=== PATIENT | female | born 1990 | race Caucasian/White ===

== ENCOUNTER 2017-09-26 02:35 | Inpatient (IN) | payer MEDICAID, SELFPAY ==
[2017-09-26 03:08] VITALS: BMI 32.3
[2017-09-26] MEDS: Lactated Ringers 1,000 ML 50 ML IV (03:15)
--- NOTE | 2017-09-26 03:34 | PCM.PN.BLA ---
Progress Note 40+ wk ? SROM. ROM + test sent Uncomfortable. 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 PIH labs sent.
--- NOTE | 2017-09-26 03:37 | PN_ITS ---
Progress Note 40+ wk ? SROM. ROM + test sent Uncomfortable. 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 PIH labs sent.
[2017-09-26 03:41] LABS: Hematocrit 35.8 % (37-47); Hemoglobin 11.7 g/dl (12.0-15.0); Mean Corp Hgb Conc 32.7 g/gl (32-36); Mean Corpuscular Hgb 26.3 pg (27.0-32.0); Mean Corpuscular Volume 80.4 fL (81-99); Mean Platelet Vol. 10.8 fl (6.2-12.0); Platelet Count 392 K/mm3 (150-450); RBC Distribution Width SD 39.8 fl (35.1-43.9); Red Blood Count 4.45 M/mm3 (4.2-5.4); Scan Indicated on CBC? Y/N NO; White Blood Count 20.6 K/mm3 (4.4-11.0)
[2017-09-26 03:42] LABS: ROM Internal Control Test YES-OK TO RESULT pt. (Internal QC); ROM Patient Test POSITIVE (Negative)
[2017-09-26 03:47] LABS: International Normalized Ratio 0.9; Prothrombin Time (Protime)PT. 12.1 SECONDS (11.7-14.9)
[2017-09-26 03:48] LABS: Partial Thromboplast Time 28.2 Seconds (24.1-36.2)
[2017-09-26 03:54] LABS: AST(SGOT) 28 U/L (15-37); Alanine Aminotransfer ALT/SGPT 43 U/L (12-78); Creatinine, Serum 0.51 mg/dL (0.55-1.02); EST Glomerular Filtration Rate 153 mL/min (>60); Est Glom Filt Rate - Afr Amer 185 mL/min (>60); Estimated Creatinine Clearance 150.42 ml/min; Uric Acid 4.2 mg/dL (2.6-6.0)
--- NOTE | 2017-09-26 06:03 | PCM.PN.BLA ---
Progress Note 40+ wks. Sitting up in bed vomiting into emesis bag. Multiple family members attending. Was using nitrous for pain EFM: category I tracing. 130s with accels UCs present, poor tracing at times due to position Cx 9 cm ? forebag. Unable to rupture at present d/t emesis, discomfort. A/P: 40+ wk continue labor. Anticipate
[2017-09-26] MEDS: Oxytocin 30 units/NS 500 ml 30 UNITS/500 ML IV.SOLN 334 UNITS IV (07:03)
--- NOTE | 2017-09-26 07:22 | PCM.OB.VAG ---
Vaginal Delivery Maternal Presentation: Active Labor, Spontaneous Rupture of Membranes Amniotic Membrane Rupture Type: Spontaneous at home Amniotic Fluid Description: Clear Final EVERETTE: 09/24/17 Gestational age: 40 Weeks and 2 Days Date of Procedure: 09/26/17 Pre-Operative Diagnosis: 40 2/7 wk labor Post-Operative Diagnosis: same Surgery/ Procedure Performed: Spontaneous Vaginal Delivery Type of Anesthesia: None Description of Procedure: Baby HR in 90-100 during last stage of pushing. O2 applied of a waldron viable female over intact perineum to lacerations. Head delivered SHAUN. OP , no nuchal cord, Shoulders delivered easily. Baby to maternal abdomen OP and nares bulb suctioned. Short cord Cord clamped x two and cut. Routine venous and arterial blood gases and cord blood for typing collected. PP exam; Perineal first degree lacerations and 2nd deg posterior vaginal/perineal laceration noted. Placenta delivered easily, spont expulsion 3V cord normal appearing and intact with attached clot and trailing membranes EBL 350 Pt and tolerated delivery well. To recovery, stable condition. Ray Kathia counts correct Presentation: Vertex, ALEXANDREA Placental Delivery Description: Spontaneous, Expressed Placenta Disposition: [facility] Cord Vessel Description: 3 Vessels Cord Gases drawn per routine: ABG, VBG Cord Entanglement: None Estimated Blood Loss: 350 Infant A gender: Female (1 minute): 8 (5 minute): 9 Episiotomy Description: None Laceration: Midline, Vaginal Extension/lac, 2nd degree - bilateral anterior perineal lacerations also noted, but 1st deg and hemostatic (not repaired) Medications given after delivery: IV Pitocin Complications: None
--- NOTE | 2017-09-26 07:27 | OP.PCM_ITS ---
Vaginal Delivery Maternal Presentation: Active Labor, Spontaneous Rupture of Membranes Amniotic Membrane Rupture Type: Spontaneous at home Amniotic Fluid Description: Clear Final EVERETTE: 09/24/17 Gestational age: 40 Weeks and 2 Days Date of Procedure: 09/26/17 Pre-Operative Diagnosis: 40 2/7 wk labor Post-Operative Diagnosis: same Surgery/ Procedure Performed: Spontaneous Vaginal Delivery Type of Anesthesia: None Description of Procedure: Baby HR in 90-100 during last stage of pushing. O2 applied of a waldron viable female over intact perineum to lacerations. Head delivered SHAUN. OP , no nuchal cord, Shoulders delivered easily. Baby to maternal abdomen OP and nares bulb suctioned. Short cord Cord clamped x two and cut. Routine venous and arterial blood gases and cord blood for typing collected. PP exam; Perineal first degree lacerations and 2nd deg posterior vaginal/ perineal laceration noted. Placenta delivered easily, spont expulsion 3V cord normal appearing and intact with attached clot and trailing membranes EBL 350 Pt and infant tolerated delivery well. To recovery, stable condition. Ray Kathia counts correct Presentation: Vertex, ALEXANDREA Placental Delivery Description: Spontaneous, Expressed Placenta Disposition: [facility] Cord Vessel Description: 3 Vessels Cord Gases drawn per routine: ABG, VBG Cord Entanglement: None Estimated Blood Loss: 350 A gender: Female (1 minute): 8 (5 minute): 9 Episiotomy Description: None Laceration: Midline, Vaginal Extension/lac, 2nd degree - bilateral anterior perineal lacerations also noted, but 1st deg and hemostatic (not repaired) Medications given after delivery: IV Pitocin Complications: None
--- NOTE | 2017-09-26 07:27 | PCM.DCVAG ---
Discharge Diet: No Restrictions Discharge Activity: May Shower, May Take a Tub Bath Return to work on:: 11/08/17 May resume sexual activity in: 4-6 weeks Additional Instructions: If you experience any of the following, contact your healthcare provider. Bleeding that soaks a pad every hour for 2 hours Fever 100.4 or higher Unrelieved abdominal pain Problems urinating (including inability to urinate or burning while urinating). Visual changes Severe headache Flu-like symptoms Pain or redness in one of both of your breasts Pain, warmth, tenderness or swelling in your legs, especially the calf area Frequent nausea and vomiting Symptoms of depression or anxiety If you experience any of the following, call 911 or go to the nearest Emergency Room. Chest pain Problems breathing Seizure activity Partial or complete paralysis of a body part, slurred speech, weakness or drooping of the face, or a sudden inability to walk or hold your balance Allergies/Adverse Reactions: Allergies No Known Allergies Allergy (Verified 09/26/17 03:08) Medications to take at Discharge Vits [Prenatabs FA] 1 tablet PO DAILY 06/10/17 Please Follow Up With: Alondra Nelson MD - [phone] When: Call to make an appointment with your doctor in 6 weeks. Primary Care Physician: Care Physician,No Primary [Primary Care Provider] - Proposed Discharge Date: 09/28/17
--- NOTE | 2017-09-26 07:28 | DCINST_ITS ---
Discharge Diet: No Restrictions Discharge Activity: May Shower, May Take a Tub Bath Return to work on:: 11/08/17 May resume sexual activity in: 4-6 weeks Additional Instructions: If you experience any of the following, contact your healthcare provider. * Bleeding that soaks a pad every hour for 2 hours * Fever 100.4 or higher * Unrelieved abdominal pain * Problems urinating (including inability to urinate or burning while urinating) . * Visual changes * Severe headache * Flu-like symptoms * Pain or redness in one of both of your breasts * Pain, warmth, tenderness or swelling in your legs, especially the calf area * Frequent nausea and vomiting * Symptoms of depression or anxiety If you experience any of the following, call 911 or go to the nearest Emergency Room. * Chest pain * Problems breathing * Seizure activity * Partial or complete paralysis of a body part, slurred speech, weakness or drooping of the face, or a sudden inability to walk or hold your balance Allergies/Adverse Reactions: Allergies No Known Allergies Allergy (Verified 09/26/17 03:08) Medications to take at Discharge Vits [Prenatabs FA] 1 tablet PO DAILY 06/10/17 Please Follow Up With: Alondra Nelson MD - [phone] When: Call to make an appointment with your doctor in 6 weeks. Primary Care Physician: Care Physician,No Primary [Primary Care Provider] - Proposed Discharge Date: 09/28/17
[2017-09-26] MEDS: Oxytocin 30 units/NS 500 ml 30 UNITS/500 ML IV.SOLN 167 UNITS IV (07:38)
[2017-09-26] MEDS: Acetaminophen 500 MG Tablet 1000 MG PO ×2 (08:45→18:37)
[2017-09-26] MEDS: Ibuprofen 600 MG Tablet PO (10:12)
[2017-09-26 12:00] VITALS: BP 133/66; PULSE 113; RESP 18; TEMP 36.8; O2SAT 98
[2017-09-26 16:15] VITALS: BP 122/65; PULSE 96; RESP 18; TEMP 37.1; O2SAT 97
[2017-09-26 21:05] VITALS: BP 149/77; PULSE 85; RESP 18; TEMP 36.9; O2SAT 98
[2017-09-27 00:10] VITALS: BP 136/76; PULSE 90; RESP 20; TEMP 36.5; O2SAT 97
[2017-09-27] MEDS: Acetaminophen 500 MG Tablet 1000 MG PO ×2 (02:56→19:07)
[2017-09-27 03:05] VITALS: BP 125/74; PULSE 77; RESP 18; TEMP 37.1; O2SAT 97
[2017-09-27 06:39] LABS: Hematocrit 29.6 % (37-47); Hemoglobin 9.7 g/dl (12.0-15.0); Mean Corp Hgb Conc 32.8 g/gl (32-36); Mean Corpuscular Hgb 26.6 pg (27.0-32.0); Mean Corpuscular Volume 81.3 fL (81-99); Mean Platelet Vol. 10.7 fl (6.2-12.0); Platelet Count 375 K/mm3 (150-450); RBC Distribution Width CV 14.1 % (11.6-14.6); RBC Distribution Width SD 40.6 fl (35.1-43.9); Red Blood Count 3.64 M/mm3 (4.2-5.4)
[2017-09-27 07:26] LABS: Scan Indicated on CBC? Y/N NO
[2017-09-27 08:42] VITALS: BP 135/68; PULSE 61; RESP 16; TEMP 36.8; O2SAT 98
[2017-09-27] MEDS: Ibuprofen 600 MG Tablet PO ×2 (10:23→23:51)
--- NOTE | 2017-09-27 12:54 | PCM.PN.OB ---
Subjective: PPD#1 Doing well. States bleeding is more minimal. Breast feeding, but baby hard to wake up now. Objective: Sitting up in bed, tending to baby - Physical Exam General: Alert, Oriented x3, Cooperative, No apparent distress HEENT: Atraumatic Neck: Supple Neurological: Cranial nerves II-XII grossly intact Psych/Mental Status: Normal Affect Vital Signs Temp Pulse Resp BP Pulse Ox 98.3 F 61 16 135/68 H 98 09/27/17 08:42 09/27/17 08:42 09/27/17 08:42 09/27/17 08:42 09/27/17 08:42 Oxygen Delivery Method Room Air Weight: 88.1 kg Body Mass Index (BMI) 32.3 Laboratory Tests Past 24 Hrs 09/27/17 06:15 WBC 17.0 H RBC 3.64 L Hgb 9.7 L Hct 29.6 L MCV 81.3 MCH 26.6 L MCHC 32.8 RDW 14.1 RDW Differential 40.6 Plt Count 375 MPV 10.7 Assessment/Plan PPD#1 Stable pp. continue care.
[2017-09-27 14:00] VITALS: BP 139/80; PULSE 81; RESP 16; TEMP 36.5; O2SAT 98
[2017-09-27 19:35] VITALS: BP 143/95; PULSE 96; RESP 16; TEMP 37.3
[2017-09-28 01:10] VITALS: BP 148/80; PULSE 72; RESP 16; TEMP 37.4; O2SAT 98
[2017-09-28 08:10] VITALS: BP 138/81; PULSE 90; RESP 16; TEMP 37.9; O2SAT 97
[2017-09-28] MEDS: Ibuprofen 600 MG Tablet PO (08:26)
--- NOTE | 2017-09-28 08:41 | PN.OBGYN_ITS ---
Subjective: PPD#2 Doing ok. Breasts are sore and nipples sore. Good latch already noted. Advised normal vs s/sx of mastitis. Mild / borderline pp HTN. Will continue to observe and advised her no meds for now. NO PIH sx. Sore lower abdomen but has cough and this may be complicating any muscle pain she has. - Physical Exam General: Alert, Oriented x3, Cooperative, No apparent distress HEENT: Atraumatic - coughing and has cold Neck: Supple Abdomen: Soft - minimally tender to palpation. no guarding, no rebound Neurological: Cranial nerves II-XII grossly intact Psych/Mental Status: Normal Affect Vital Signs Temp Pulse Resp BP Pulse Ox 99.3 F H 72 16 148/80 H 98 09/28/17 01:10 09/28/17 01:10 09/28/17 01:10 09/28/17 01:10 09/28/17 01:10 Oxygen Delivery Method Room Air Weight: 88.1 kg Body Mass Index (BMI) 32.3 Assessment/Plan PPD#2 Stable pp. Milk likely coming in. Low gr temp this am Mild elevation of BPs. -- home and reviewed all with pt. Dischg instructions given. Breast pain / nipple pain -- Lansinoh cream -- quality assurance consultant [email or web address] Nath in to evaluate. Good latch already noted. Reviewed s/sx of mastitis and encouraged to call ofc prn. Mild HTN -- already delivered and doubt meds needed -- ofc appt for BP check in 2 wk Temps in labor -- watch and report temp at home -- urine culture to be sent prior to dischg. To ofc in 2 and 6 wk for pp checks.
[2017-09-28 09:47] LABS: Hematocrit 32.7 % (37-47); Hemoglobin 10.5 g/dl (12.0-15.0); Mean Corp Hgb Conc 32.1 g/gl (32-36); Mean Corpuscular Hgb 26.2 pg (27.0-32.0); Mean Corpuscular Volume 81.5 fL (81-99); Mean Platelet Vol. 10.1 fl (6.2-12.0); Platelet Count 461 K/mm3 (150-450); RBC Distribution Width SD 41.7 fl (35.1-43.9); Red Blood Count 4.01 M/mm3 (4.2-5.4); White Blood Count 14.4 K/mm3 (4.4-11.0)
[2017-09-28 09:48] LABS: Scan Indicated on CBC? Y/N NO
== END 2017-09-28 11:30 | disposition home or self-care (01) | DRG 372 ==
PROVIDERS: Admitting Provider Obstetrics & Gynecology; Visit Provider Obstetrics & Gynecology
DX: O70.1 Second degree perineal laceration during delivery (principal); O16.5 Unspecified maternal hypertension, complicating the puerperium; Z37.0 Single live birth; Z3A.40 40 weeks gestation of pregnancy
CPT/HCPCS: 59025; 59050; 82565; 84112; 84450; 84460; 84550; 85027; 85610; 85730; 86850; 86900; 87086; 99218; J7120; A4216; G0378

== ENCOUNTER → 2020-05-09 13:53 | Outpatient (CLI) | payer BC, SELFPAY | PROVIDERS: Visit Provider Family Medicine | DX: Z11.59 Encounter for screening for other viral diseases (principal) | CPT/HCPCS: 87635; U0003 ==

== ENCOUNTER → 2020-05-21 | Outpatient (CLI) | payer BC, SELFPAY | END | disposition home or self-care (01) | LOC: LABSPEC 05-22 12:23 | PROVIDERS: Visit Provider Family Medicine | DX: Z11.59 Encounter for screening for other viral diseases (principal) | CPT/HCPCS: 87635; U0003 ==

== ENCOUNTER → 2020-08-31 20:29 | Outpatient (CLI) | payer BC, SELFPAY | LOC: OLS.WHL 20:30 → LABSPEC 09-01 15:50 | PROVIDERS: Visit Provider Family Medicine | DX: Z00.00 Encounter for general adult medical examination without abnormal findings (principal) | CPT/HCPCS: 87635; U0003 ==

== ENCOUNTER → 2020-10-15 15:18 | Outpatient (CLI) | payer BC, SELFPAY ==
[2020-10-18 03:07] LABS: Chlamydia By Nucleic Acid AMP Negative (Negative)
[2020-10-18 11:08] LABS: Gonococcus By Nucleic Acid AMP Negative (Negative)
[2020-10-18 14:13] LABS: HPV Reflexed? NOT INDICATED
== END ==
PROVIDERS: Visit Provider Student in an Organized Health Care Education/Training Program
DX: Z12.4 Encounter for screening for malignant neoplasm of cervix (principal); Z11.3 Encounter for screening for infections with a predominantly sexual mode of transmission; Z32.01 Encounter for pregnancy test, result positive
CPT/HCPCS: 87491; 87591; 88175; G0145

== ENCOUNTER → 2020-10-30 08:25 | Outpatient (CLI) | payer BC, SELFPAY ==
[2020-10-30 10:51] LABS: Hematocrit 42.1 % (37-47); Hemoglobin 13.2 g/dL (12.0-15.0); Mean Corp Hgb Conc 31.4 g/dL (32-36); Mean Corpuscular Hgb 26.6 pg (27.0-32.0); Mean Corpuscular Volume 84.7 fL (81-99); Mean Platelet Vol. 9.8 fl (6.2-12.0); Platelet Count 362 K/mm3 (150-450); RBC Distribution Width CV 13.3 % (11.6-14.6); RBC Distribution Width SD 41.6 fl (35.1-43.9); Red Blood Count 4.97 M/mm3 (4.2-5.4); White Blood Count 13.4 K/mm3 (4.4-11.0)
[2020-10-30 10:55] LABS: Glucose Challenge Gest 1H 50g 138 mg/dL (70-140)
== END ==
PROVIDERS: Visit Provider Student in an Organized Health Care Education/Training Program
DX: Z34.81 Encounter for supervision of other normal pregnancy, first trimester (principal); Z67.40 Type O blood, Rh positive
CPT/HCPCS: 36415; 82950; 85027

== ENCOUNTER → 2020-11-08 09:31 | Outpatient (CLI) | payer BC, SELFPAY ==
[2020-11-08 14:02] LABS: hCG Titer Quant., Serum 28464 mIU/mL (1-3)
== END ==
PROVIDERS: Visit Provider Student in an Organized Health Care Education/Training Program
DX: O02.81 Inappropriate change in quantitative human chorionic gonadotropin (hCG) in early pregnancy (principal); Z3A.00 Weeks of gestation of pregnancy not specified
CPT/HCPCS: 36415; 84702

== ENCOUNTER 2022-07-23 01:47 | Emergency (ER) | payer SELFPAY ==
[2022-07-23 01:47] VITALS: BP 178/96; PULSE 120; RESP 18; TEMP 36.5; O2SAT 99; BMI 36.3
--- NOTE | 2022-07-23 02:09 | EKG12_ITS ---
Test Reason : HTN Blood Pressure : / mmHG Vent. Rate : 080 BPM Atrial Rate : 080 BPM P-R Int : 142 ms QRS Dur : 086 ms QT Int : 366 ms P-R-T Axes : 040 -08 007 degrees QTc Int : 422 ms Normal sinus rhythm Minimal voltage criteria for LVH, may be normal variant ( R in aVL ) Cannot rule out Anterior infarct , age undetermined Abnormal ECG Confirmed by MIRYAM PEREZ, AMILCAR ([id number]), story editor LYNN LORENZANA ([id number]) on 07/27/2022 11:48:36 AM Referred By: Confirmed By:AMILCAR WITT MD
--- NOTE | 2022-07-23 02:10 | EDS_ITS ---
HPI History of Present Illness Chief Complaint: Hypertension Detail of Chief Complaint: High blood pressure and not feeling well Informant: patient Narrative Narrative: Patient presents the emergency department with complaint of elevated blood pressure. Patient states that she was sitting at work when she started feeling very shaky and so she felt to check her blood sugar which she is never really had a problem with and the sugar was 107. Patient also checked her blood pressure noted that it was elevated at 174/110 and her pulse was 128. Patient states she has had intermittent episodes of elevated heart rates as high as 120s to 140s. Patient denies recent illness. Patient states she found out a week ago that she was and think she is about 7 weeks along. Patient states that her last ended in a miscarriage. She does not have any medical history otherwise. No significant history of anxiety or panic attacks. Denies increased stress. PFSH PFSH Home Medications NK 07/23/22 [History Last Taken Unknown] Allergy/AdvReac Type Severity Reaction Status Date / Time No Known Allergies Allergy Verified 09/26/17 03:08 Social History Smoking Status: Never smoker ROS ROS ED ROS Narrative Feeling shaky and nauseated, hypertension Review of Systems ROS Unobtainable: other Constitutional Constitutional ED: Reports lethargy; Denies chills, fever(s), sweats or weight loss Eyes Eyes: Denies blurry vision, change in vision or diplopia ENT ENT ED: Denies rhinorrhea or sore throat Cardiovascular Cardiovascular: Denies chest pain or orthopnea Respiratory/Chest Respiratory/Chest: Denies cough, dyspnea, dyspnea on exertion, orthopnea or sputum Gastrointestinal Gastrointestinal: Reports nausea; Denies abdominal pain, diarrhea or vomiting Genitourinary Genitourinary ED: Denies dysuria, hematuria or urinary frequency Musculoskeletal Musculoskeletal: Denies arthralgias, back pain, myalgias or neck pain Integumentary Denies abscess, Abrasions or rash Neurologic Neurologic: Denies headache(s) or weakness Psychiatric Psychiatric: Denies anxiety, depression or suicidal thoughts Endocrine Endocrinology: Denies polydipsia, polyphagia or polyuria Hematologic/Lymphatic Hematologic/Lymphatic: Denies easy bleeding, easy bruising or lymphadenopathy Allergic/Immunologic Allergic/Immunologic ED: Denies mouth swelling, tongue swelling or urticaria EXAM Physical Exam Const Vital Signs: 07/23/22 01:47 07/23/22 01:47 07/23/22 01:50 Temperature 97.7 F L 97.7 F L Temperature Source Temporal Temporal Pulse Rate 120 H 120 H Respiratory Rate 18 18 Respiratory Pattern Normal Blood Pressure 178/96 H 178/96 H Blood Pressure Mean 123 123 Pulse Ox 99 99 Oxygen Delivery Method Room Air Room Air Positive well nourished and well developed General Appearance ED: well developed and NAD HEENT Reports TM's clear and moist mucous membranes normocephalic and atraumatic; Negative for trauma or tenderness Tympanic Membrane ED: Yes TM's clear Eyes PERRL and EOMs intact bilaterally General Eye ED: Negative for pale conjunctiva or scleral icterus Neck no lymphadenopathy, supple and no JVD General: Negative for tenderness Chest Wall inspection of chest normal and palpation of chest normal Chest: Negative for tenderness Resp normal respiratory effort and clear to auscultation bilaterally Effort and Inspection: Negative for respiratory distress or pain with movement Auscultation: Negative for rhonchi, wheezes or diminished lung sounds Cardio regular rate, regular rhythm, S1 normal heart sound, S2 normal heart sound and no murmurs Peripheral Pulses: pulses 2+ throughout GI normal to inspection, nondistended, normoactive bowel sounds, soft to palpation, non-tender, non-distended and no masses Back/Spine no CVA tenderness and no thoracic nor lumbar tenderness Extremity normal to inspection General Extremety ED: Negative for edema General Extremity: Negative for edema Neuro oriented x3, CN's II-XII intact bilaterally, no sensory deficits noted and gait normal Sensorium / Orientation: awake, alert, oriented to person, oriented to place and oriented to time Motor Exam: strength 5/5 throughout and strength abnormal Psych mental status grossly normal Skin no rashes or lesions noted and no wounds MDM MDM MDM Narrative Medical decision making narrative: IV line established on arrival. Patient placed on registered nurse cardiac telemetry. Patient had an EKG that showed sinus rhythm with a ventricular rate of 80 bpm with no acute ST segment changes noted. CBC with differential was unremarkable. Chemistries showed a slightly depressed potassium. D-dimer was normal. Urinalysis was normal. hCG was 4468. Without any treatment her blood pressure now in the 140s systolic over 80s diastolic. Heart rate now in the 70s. Etiology of symptoms unclear although I suspect she may have had an anxiety attack given her description of events. Patient advised to follow-up with her primary care physician 3 to 5 days. Lab Data Attestation: I reviewed the patient's lab results. EKG Initial EKG: Comments: Sinus rhythm with a rate of 80 bpm with no acute ST segment changes Discharge Plan Triage Chief Complaint: Hypertension ED Provider: Edu Garcia Dx/Rx/DC Orders Clinical Impression: Hypertension, Tachycardia, Anxiety, Instructions: 1st Trimester, ED Anxiety Reaction, ED Hypertension, To Be Confirmed Prescriptions: No Action NK Primary Care Provider: Care Physician,No Primary Referrals: Pedro Li MD [Med Staff - Active Staff] - 3-5 Days Care Physician,No Primary [Primary Care Provider] - Disposition Disposition: Home, Self Care
[2022-07-23] MEDS: Ondansetron 4 MG/2 ML Vial IV (02:18)
[2022-07-23 02:21] VITALS: BP 146/94; PULSE 92; RESP 18; O2SAT 98
[2022-07-23 02:25] LABS: Absolute Lymphocyte Count 1.93 X10^3/uL (0.83-4.51); Absolute Neutrophil Count 9.8 X10^3/uL (2.0-7.7); Basophil# 0.06 X10^3/uL; Basophil% 0.5 % (0-1); Eosinophil# 0.13 X10^3/uL; Hematocrit 40.9 % (37-47); Hemoglobin 13.4 g/dL (12.0-15.0); Lymphocyte # 1.93 X10^3/ul (0.83-4.51); Lymphocyte % 15.3 % (19-41); Mean Corp Hgb Conc 32.8 g/dL (32-36); Mean Corpuscular Hgb 27.7 pg (27.0-32.0); Mean Corpuscular Volume 84.5 fL (81-99); Mean Platelet Vol. 9.7 fl (6.2-12.0); Monocyte# 0.64 X10^3/uL; Monocyte% 5.1 % (0-10); NRBC Flagged by Analyzer 0 % (0-5); Neutrophil # 9.79 X10^3/uL (2.7-7.7); Neutrophil % 77.9 % (47-70); Platelet Count 386 K/mm3 (150-450); RBC Distribution Width CV 13.5 % (11.6-14.6); Red Blood Count 4.84 M/mm3 (4.2-5.4); White Blood Count 12.6 K/mm3 (4.4-11.0)
[2022-07-23 02:42] LABS: Anion Gap 6 (5-15); BUN 6 mg/dL (7-18); BUN/Creat Ratio 8.9 RATIO (10-20); Calcium,Total 9.3 mg/dL (8.5-10.1); Chloride 108 mmol/L (98-107); Creatinine, Serum 0.68 mg/dL (0.55-1.02); EST Glomerular Filtration Rate 108 mL/min (>60); Est Glom Filt Rate - Afr Amer 130 mL/min (>60); Estimated Creatinine Clearance 107.86 ml/min; Glucose 113 mg/dL (74-106); Potassium 3.2 mmol/L (3.5-5.1); Sodium Level 141 mmol/L (136-145)
[2022-07-23 03:00] LABS: D-Dimer Quantitative (DVT/PE) < 0.27 FEU/ug/m (0.27-0.49)
[2022-07-23 03:02] LABS: hCG Titer Quant., Serum 4468 mIU/mL (1-3)
[2022-07-23 03:08] VITALS: BP 147/80; PULSE 85; RESP 18; O2SAT 97
[2022-07-23 03:18] LABS: Mucous, Urine 0 SEEN /hpf (<or=2+); Red Blood Cells-Urine 0 SEEN /hpf (0-5)
[2022-07-23 03:19] LABS: Color, Urine Yellow (Yellow); Glucose, Dipstick Normal (Normal); Ketone-Dipstick 5 mg/dl (Negative); Leukocyte Esterase-Dipstick 25 /ul (Negative); Nitrite-Dipstick Negative (Negative); Occult Blood-Urine Negative /ul (Negative); Protein-Dipstick 15 mg/dl (Negative); Specific Gravity, Urine 1.015 (1.002-1.030); Urine Bilirubin Dipstick Negative (Negative); Urine Clarity Cloudy (Clear); Urine Urobilinogen 4 mg/dl (Normal)
[2022-07-23 03:27] LABS: Amorphous Sediment 2+; Bacteria 3+ /hpf (None Seen); Squamous Epithelial Cells - UA 0-5 SEEN /hpf (5-10); White Blood Cells 0-5 SEEN /hpf (0-5)
[2022-07-23 03:48] VITALS: BP 147/85
== END 2022-07-23 03:48 | disposition home or self-care (01) ==
PROVIDERS: Emergency Provider Emergency Medicine; Visit Provider Emergency Medicine
DX: O16.1 Unspecified maternal hypertension, first trimester (principal); O99.341 Other mental disorders complicating pregnancy, first trimester; F41.9 Anxiety disorder, unspecified; R00.0 Tachycardia, unspecified; Z3A.01 Less than 8 weeks gestation of pregnancy
CPT/HCPCS: 80048; 81001; 84702; 85025; 85379; 93005; 96374; 99284; J2405

== ENCOUNTER → 2022-08-28 | Outpatient (CLI) | payer MEDICAID, SELFPAY ==
[2022-08-28 11:37] LABS: Absolute Lymphocyte Count 2.06 X10^3/uL (0.83-4.51); Absolute Neutrophil Count 8.4 X10^3/uL (2.0-7.7); Basophil# 0.05 X10^3/uL; Basophil% 0.4 % (0-1); Eosinophil# 0.17 X10^3/uL; Eosinophils% 1.5 % (0-5); Hematocrit 38.1 % (37-47); Hemoglobin 12.4 g/dL (12.0-15.0); Lymphocyte # 2.06 X10^3/ul (0.83-4.51); Lymphocyte % 18.4 % (19-41); Mean Corp Hgb Conc 32.5 g/dL (32-36); Mean Corpuscular Hgb 27.5 pg (27.0-32.0); Mean Corpuscular Volume 84.5 fL (81-99); Monocyte# 0.51 X10^3/uL; Monocyte% 4.6 % (0-10); NRBC Flagged by Analyzer 0 % (0-5); Neutrophil # 8.36 X10^3/uL (2.7-7.7); Neutrophil % 74.7 % (47-70); Platelet Count 316 K/mm3 (150-450); RBC Distribution Width SD 40.1 fl (35.1-43.9); Red Blood Count 4.51 M/mm3 (4.2-5.4); White Blood Count 11.2 K/mm3 (4.4-11.0)
[2022-08-28 12:46] LABS: HIV - WCH Non-Reactive (Nonreactive); Hepatitis B Surface Antigen Non-Reactive (Nonreactive); Hepatitis C Antibody Non-Reactive (Nonreactive); Rubella IgG Reactive (Nonreactive); Syphilis Antibodies Non-reactive
[2022-08-29 11:05] LABS: V-Zoster IgG (Immunity) < 135 index (Immune >165)
== END | disposition home or self-care (01) ==
LOC: WOBLAB 10:56
PROVIDERS: Visit Provider Obstetrics & Gynecology
DX: Z34.81 Encounter for supervision of other normal pregnancy, first trimester (principal)
CPT/HCPCS: 36415; 85025; 86703; 86762; 86780; 86787; 86803; 87086; 87088; 87340

== ENCOUNTER → 2022-09-25 | Outpatient (CLI) | payer MEDICAID, SELFPAY ==
[2022-09-25 11:26] LABS: Absolute Lymphocyte Count 1.83 X10^3/uL (0.83-4.51); Absolute Neutrophil Count 9.6 X10^3/uL (2.0-7.7); Basophil# 0.03 X10^3/uL; Basophil% 0.2 % (0-1); Eosinophil# 0.13 X10^3/uL; Eosinophils% 1.1 % (0-5); Hematocrit 38.7 % (37-47); Hemoglobin 12.8 g/dL (12.0-15.0); Lymphocyte # 1.83 X10^3/ul (0.83-4.51); Lymphocyte % 15.1 % (19-41); Mean Corp Hgb Conc 33.1 g/dL (32-36); Mean Corpuscular Hgb 27.8 pg (27.0-32.0); Mean Corpuscular Volume 83.9 fL (81-99); Mean Platelet Vol. 10.1 fl (6.2-12.0); Monocyte# 0.44 X10^3/uL; Monocyte% 3.6 % (0-10); NRBC Flagged by Analyzer 0 % (0-5); Neutrophil # 9.63 X10^3/uL (2.7-7.7); Neutrophil % 79.7 % (47-70); Platelet Count 303 K/mm3 (150-450); RBC Distribution Width CV 13.2 % (11.6-14.6); RBC Distribution Width SD 40.6 fl (35.1-43.9); Red Blood Count 4.61 M/mm3 (4.2-5.4); White Blood Count 12.1 K/mm3 (4.4-11.0)
[2022-09-25 11:35] LABS: ALB/GLOB Ratio 0.8 RATIO (0.9-2.4); AST(SGOT) 8 U/L (15-37); Alanine Aminotransfer ALT/SGPT 20 U/L (13-56); Albumin, Serum 3.2 g/dL (3.2-5.0); Alkaline Phosphatase 60 U/L (45-117); Anion Gap 6 (5-15); BUN 5 mg/dL (7-18); BUN/Creat Ratio 9.9 RATIO (10-20); Chloride 106 mmol/L (98-107); EST Glomerular Filtration Rate 150 mL/min (>60); Est Glom Filt Rate - Afr Amer 182 mL/min (>60); Glucose 104 mg/dL (74-106); LDH 132 U/L (84-246); Potassium 3.5 mmol/L (3.5-5.1); Protein, Total 7.2 g/dL (6.4-8.2); Protein, Urine (Random) 22.7 mg/dL (<11.9); Protein:Creat Ratio 85 mg/g CRE (0-200); Sodium Level 137 mmol/L (136-145)
== END | disposition home or self-care (01) ==
LOC: WOBLAB 10:43
PROVIDERS: Visit Provider Obstetrics & Gynecology
DX: O13.3 Gestational [pregnancy-induced] hypertension without significant proteinuria, third trimester (principal); Z3A.00 Weeks of gestation of pregnancy not specified
CPT/HCPCS: 36415; 80053; 82570; 83615; 84156; 85025; 87086; 87088

== ENCOUNTER → 2022-12-28 | Outpatient (CLI) | payer MEDICAID, SELFPAY ==
[2022-12-28 15:07] LABS: Absolute Lymphocyte Count 1.31 X10^3/uL (0.83-4.51); Absolute Neutrophil Count 11.2 X10^3/uL (2.0-7.7); Basophil# 0.04 X10^3/uL; Basophil% 0.3 % (0-1); Eosinophils% 0.8 % (0-5); Hematocrit 37.9 % (37-47); Hemoglobin 12.2 g/dL (12.0-15.0); Lymphocyte # 1.31 X10^3/ul (0.83-4.51); Mean Corp Hgb Conc 32.2 g/dL (32-36); Mean Corpuscular Hgb 27.9 pg (27.0-32.0); Mean Corpuscular Volume 86.7 fL (81-99); Mean Platelet Vol. 10.9 fl (6.2-12.0); Monocyte# 0.36 X10^3/uL; Monocyte% 2.7 % (0-10); NRBC Flagged by Analyzer 0 % (0-5); Neutrophil # 11.22 X10^3/uL (2.7-7.7); Neutrophil % 85.5 % (47-70); Platelet Count 301 K/mm3 (150-450); RBC Distribution Width CV 12.8 % (11.6-14.6); RBC Distribution Width SD 40.2 fl (35.1-43.9); Red Blood Count 4.37 M/mm3 (4.2-5.4); White Blood Count 13.1 K/mm3 (4.4-11.0)
[2022-12-28 15:14] LABS: Glucose Challenge Gest 1H 50g 152 mg/dL (70-140)
[2022-12-28 15:57] LABS: Syphilis Antibodies Non-reactive
== END | disposition home or self-care (01) ==
PROVIDERS: Visit Provider Student in an Organized Health Care Education/Training Program
DX: Z34.92 Encounter for supervision of normal pregnancy, unspecified, second trimester (principal)
CPT/HCPCS: 36415; 82950; 85025; 86780

== ENCOUNTER → 2023-01-11 | Outpatient (CLI) | payer MEDICAID, SELFPAY ==
[2023-01-11 09:24] LABS: Absolute Lymphocyte Count 1.67 X10^3/uL (0.83-4.51); Absolute Neutrophil Count 11.4 X10^3/uL (2.0-7.7); Basophil# 0.06 X10^3/uL; Basophil% 0.4 % (0-1); Eosinophil# 0.13 X10^3/uL; Eosinophils% 0.9 % (0-5); Hematocrit 38.5 % (37-47); Hemoglobin 12.4 g/dL (12.0-15.0); Lymphocyte # 1.67 X10^3/ul (0.83-4.51); Mean Corp Hgb Conc 32.2 g/dL (32-36); Mean Corpuscular Hgb 27.7 pg (27.0-32.0); Mean Corpuscular Volume 85.9 fL (81-99); Mean Platelet Vol. 10.5 fl (6.2-12.0); Monocyte# 0.53 X10^3/uL; Monocyte% 3.8 % (0-10); NRBC Flagged by Analyzer 0 % (0-5); Neutrophil # 11.39 X10^3/uL (2.7-7.7); Neutrophil % 82.3 % (47-70); Platelet Count 326 K/mm3 (150-450); RBC Distribution Width CV 12.8 % (11.6-14.6); RBC Distribution Width SD 40.1 fl (35.1-43.9); Red Blood Count 4.48 M/mm3 (4.2-5.4); White Blood Count 13.9 K/mm3 (4.4-11.0)
[2023-01-11 09:33] LABS: Protein:Creat Ratio 139 mg/g CRE (0-200)
[2023-01-11 09:37] LABS: ALB/GLOB Ratio 0.6 RATIO (0.9-2.4); AST(SGOT) 6 U/L (15-37); Alanine Aminotransfer ALT/SGPT 11 U/L (13-56); Albumin, Serum 2.7 g/dL (3.2-5.0); Alkaline Phosphatase 97 U/L (45-117); Anion Gap 7 (5-15); BUN 7 mg/dL (7-18); BUN/Creat Ratio 12.5 RATIO (10-20); Chloride 107 mmol/L (98-107); Creatinine, Serum 0.56 mg/dL (0.55-1.02); EST Glomerular Filtration Rate 133 mL/min (>60); Est Glom Filt Rate - Afr Amer 161 mL/min (>60); Globulin 4.4 g/dL (2.2-4.2); Glucose 129 mg/dL (74-106); LDH 119 U/L (84-246); Protein, Total 7.1 g/dL (6.4-8.2); Sodium Level 137 mmol/L (136-145)
== END | disposition home or self-care (01) ==
LOC: WOBLAB 08:50
PROVIDERS: Visit Provider Student in an Organized Health Care Education/Training Program
DX: Z34.83 Encounter for supervision of other normal pregnancy, third trimester (principal)
CPT/HCPCS: 36415; 80053; 82570; 83615; 84156; 85025; 87086; 87088

== ENCOUNTER → 2023-03-01 | Outpatient (CLI) | payer MEDICAID, SELFPAY ==
[2023-03-01 16:30] LABS: Hemoglobin 12.4 g/dL (12.0-15.0); Mean Corp Hgb Conc 33.5 g/dL (32-36); Mean Corpuscular Hgb 27.7 pg (27.0-32.0); Mean Corpuscular Volume 82.8 fL (81-99); Platelet Count 290 K/mm3 (150-450); RBC Distribution Width CV 13.5 % (11.6-14.6); RBC Distribution Width SD 40.6 fl (35.1-43.9); Red Blood Count 4.47 M/mm3 (4.2-5.4); White Blood Count 10.5 K/mm3 (4.4-11.0)
== END | disposition home or self-care (01) ==
LOC: WOBLAB 15:09
PROVIDERS: Visit Provider Student in an Organized Health Care Education/Training Program
DX: Z34.83 Encounter for supervision of other normal pregnancy, third trimester (principal); Z36.85 Encounter for antenatal screening for Streptococcus B
CPT/HCPCS: 36415; 85027; 87081

== ENCOUNTER 2023-03-18 07:00 | Inpatient (IN) | payer MEDICAID, SELFPAY ==
[2023-03-18] VITALS (28 sets, daily range): BP systolic 128–153; BP diastolic 66–88; PULSE 62–85; RESP 16; TEMP 36.1–36.8; O2SAT 97–100; BMI 35.2
--- NOTE | 2023-03-18 07:25 | HP.PCM.OB_ITS ---
History and Physical Date of Admission: 03/18/23 HPI: 32-year-old G3, P1 at 39/3 weeks, EVERETTE 03/22/2023 by first trimester ultrasound, admitted for induction of labor for gestational diabetes type A2. Denies regular contractions, leaking of fluid, vaginal bleeding. Reports movement. Denies headache or vision changes, chest pain or shortness of breath, nausea or vomiting, diarrhea constipation, fevers or chills. 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 GDMA2 Surgical history: 1. Denies Allergies: NKDA Medications: 1. vitamin 2. Levemir 25 units qAM, 37 units qPM Family history: Denies history of blood clots or bleeding disorders, noncontributory Social history: Reports tobacco, denies alcohol or drug use Review of system: Negative otherwise stated above Physical exam: Vitals: pending General: No acute distress HEENT: Normal cephalic/atraumatic, PERRLA Cardiorespiratory: No increased effort Abdomen: Soft, nontender, gravid Extremities: Minimal edema Neurologic: Cranial nerves II through XII grossly intact, no focal deficits Musculoskeletal: Strength 5 out of 5 throughout extremities, moves all extremities heart rate: pending [place]: Assessment/Plan: 32-year-old G3, P1 at 39/3 weeks, EVERETTE 03/22/2023 by first trimester ultrasound, admitted for induction of labor for gestational diabetes type A2. complicated by: gestational diabetes type A2. ?Admit for induction of labor with Pitocin. AROM. ?GBS negative
[2023-03-18] MEDS: Lactated Ringers 1,000 ML 50 ML IV (12:05)
[2023-03-18 12:32] LABS: Absolute Lymphocyte Count 1.33 X10^3/uL (0.83-4.51); Absolute Neutrophil Count 7.5 X10^3/uL (2.0-7.7); Basophil# 0.04 X10^3/uL; Basophil% 0.4 % (0-1); Eosinophil# 0.09 X10^3/uL; Hematocrit 35.7 % (37-47); Hemoglobin 11.4 g/dL (12.0-15.0); Lymphocyte # 1.33 X10^3/ul (0.83-4.51); Lymphocyte % 14.2 % (19-41); Mean Corp Hgb Conc 31.9 g/dL (32-36); Mean Corpuscular Hgb 26.8 pg (27.0-32.0); Mean Platelet Vol. 10.6 fl (6.2-12.0); Monocyte# 0.43 X10^3/uL; Monocyte% 4.6 % (0-10); NRBC Flagged by Analyzer 0 % (0-5); Neutrophil # 7.46 X10^3/uL (2.7-7.7); Neutrophil % 79.4 % (47-70); Platelet Count 286 K/mm3 (150-450); RBC Distribution Width CV 13.8 % (11.6-14.6); RBC Distribution Width SD 42.1 fl (35.1-43.9); Red Blood Count 4.25 M/mm3 (4.2-5.4); White Blood Count 9.4 K/mm3 (4.4-11.0)
[2023-03-18] MEDS: Oxytocin 15 Units/NS 250ml 15 UNITS/250 ML IV.SOLN 2 UNITS IV (12:33)
[2023-03-18 13:45] LABS: Bedside Glucose 96 mg/dL (74-106)
[2023-03-18 14:06] LABS: Bedside Glucose 85 mg/dL (74-106)
[2023-03-18 14:10] LABS: Syphilis Antibodies Non-reactive
[2023-03-18 18:03] LABS: Bedside Glucose 86 mg/dL (74-106)
[2023-03-18] MEDS: Lidocaine 1% (20 ml mdv) 20 ML Vial INFILT (19:00)
--- NOTE | 2023-03-18 19:14 | EX.PCM.OBRPT ---
Maternal Data Information Final EVERETTE: 03/22/23 Vaginal Delivery Operative Information Date of Procedure: 03/18/23 Pre-Operative Diagnosis: Castro intrauterine , gestational diabetes mellitus type A2 Post-Operative Diagnosis: Castro intrauterine , gestational diabetes mellitus type A2 Surgery / Procedure Performed: Spontaneous Vaginal Delivery Type of Anesthesia: None Estimated Blood Loss: 250cc Findings Description of Procedure: Spontaneous vaginal delivery of viable male. Nuchal cord x1, loose, delivered through. Baby to mom. Cord clamped and cut. Spontaneous delivery of placenta. First-degree laceration repaired in the usual fashion after instillation of lidocaine. Hemostatic. A Gender: Male (1 minute): 8 (5 minute): 9 Complication Complications: None
[2023-03-18] MEDS: Oxytocin 15 Units/NS 250ml 15 UNITS/250 ML IV.SOLN 83 UNITS IV (19:58)
[2023-03-18 20:05] LABS: Bedside Glucose 112 mg/dL (74-106)
[2023-03-18] MEDS: Acetaminophen 500 MG Tablet 1000 MG PO (20:26)
[2023-03-18] MEDS: Ibuprofen 600 MG Tablet PO (20:50)
[2023-03-19 04:21] VITALS: BP 129/75; PULSE 70; RESP 16; TEMP 36.8; O2SAT 97
[2023-03-19 07:51] LABS: Bedside Glucose 92 mg/dL (74-106)
[2023-03-19 08:10] VITALS: BP 127/83; PULSE 68; RESP 18; TEMP 36.6
--- NOTE | 2023-03-19 09:34 | PCM.PN.OB ---
Subjective Subjective No overnight complaints Objective Data Objective Data Vital Signs: Vital Signs Temp Pulse Resp BP Pulse Ox O2 Del Method 97.8 F 68 18 127/83 H 97 Room Air 03/19/23 08:10 03/19/23 08:10 03/19/23 08:10 03/19/23 08:10 03/19/23 04:21 03/19/23 08:10 Oxygen Delivery Method Room Air Weight: 211 lb 4 oz Body Mass Index (BMI) 35.2 Intake & Output: Intake and Output for Last 24 Hours 03/17/23 03/18/23 03/19/23 23:59 23:59 23:59 Intake Total 970.83 / 970.83 Output Total 700 / 700 150 / 150 Balance 270.83 / 270.83 -150 / -150 Lab / Micro Data 03/18/23 12:05 Labs: Laboratory Results - last 24 hr 03/18/23 12:05: WBC 9.4, RBC 4.25, Hgb 11.4 L, Hct 35.7 L, MCV 84.0, MCH 26.8 L, MCHC 31.9 L, RDW Std Deviation 42.1, RDW Coeff of Jacqueline 13.8, Plt Count 286, MPV 10.6, Immature Gran % (Auto) 0.400, Neut % (Auto) 79.4 H, Lymph % (Auto) 14.2 L, [place] % (Auto) 4.6, Eos % (Auto) 1.0, Baso % (Auto) 0.4, Absolute Neuts (auto) 7.5, Absolute Lymphs (auto) 1.33, Nucleated RBC % 0, Syphilis Total Ab Non-reactive, Blood Type O POSITIVE, Antibody Screen NEGATIVE 03/18/23 12:44: POC Glucose 96 03/18/23 13:47: POC Glucose 85 03/18/23 17:44: POC Glucose 86 03/18/23 19:16: POC Glucose 112 H 03/19/23 06:17: POC Glucose 92 Physical Exam Const alert, oriented x3, no apparent distress, average body habitus, healthy appearing and well nourished HEENT normocephalic and moist oral mucous membranes Eyes PERRL Neck full ROM Resp normal respiratory effort, no retractions and no use of accessory muscles GI GI Narrative: Soft, nontender, uterus firm and below umbilicus Extremity normal to inspection, full ROM and no clubbing, cyanosis or edema Neuro moves all extremities and no focal motor deficits Psych mental status grossly normal, affect normal, speech normal and activity/motor behavior normal Assessment & Plan (1) Vaginal delivery: PLAN: day 1. Breast-feeding. Pain well controlled. Likely discharge home tomorrow
[2023-03-19 13:00] VITALS: BP 136/72; PULSE 74; RESP 16; TEMP 36.1
--- NOTE | 2023-03-19 16:25 | CASEMGMT ---
Social Work Labor and Delivery Unit Sw informed of consult for mother of baby (MOB- Jessica) due to MOB indicating one of her parents having a history with drugs/ alcohol. - Sw presented to bedside, introduced self to MOB and father of baby (FOAnnia- Kush). Sw explained reason for sw involvement at this time - Sw assessed for any needs or concerns at this time. MOB was tearful. Sw provided literature and education on signs and symptoms of baby blues and post depression. Sw also provided MOB with list of counseling agencies that are local to her and encouraged MOB to get connected should any symptoms of baby blues or depression present themselves or get worse. MOB expressed understanding. - MOB reporst that her father is an alcoholic, but he lives in [place] and it has been 5 years since she has seen him. MOB states that he will not be an identified caregiver for baby, Da. - Sw provided ongoing support and ensured that parents have everything they need for baby at this time. Parents state they have obtained clothes, diapers, wipes, car seat and have a safe sleep space for baby as well. - No additional concerns at this time, MOB and baby expected to be ready for S[employer] tomorrow, 03/20/23. Jennifer Maharaj, DRAFTER, UPPER STITCHER
[2023-03-19 17:00] VITALS: BP 136/82; PULSE 77; RESP 18; TEMP 36.5
[2023-03-19] MEDS: Ibuprofen 600 MG Tablet PO (20:05)
[2023-03-19 20:07] VITALS: BP 142/85; PULSE 74; RESP 16; TEMP 36.6
[2023-03-20 02:17] VITALS: BP 137/78; PULSE 57; RESP 16; TEMP 36.8; O2SAT 97
--- NOTE | 2023-03-20 07:15 | DCINST_ITS ---
Discharge Instructions Diet Discharge Diet: No restrictions Activity Discharge Activity: Return to Normal Activity and May Shower May resume sexual activity in: 4-6 weeks Weight Bearing Status: Weight bearing as tolerated Lifting Restrictions: No greater than 25 pounds Dressing / Incision Call your doctor if you observe: Fever of 101 or Higher, Change in Color, Inability to urinate, Using more than 1 pad per hour, Shortness of breath, Dizziness, Swelling in the ankles, Chest pain and Calf discomfort Follow Up Care Please Follow Up With: Leigh Arce DO When: 1 week BP check in office (Monday 03/26), 6-week visit Test Results: Test results from this visit will be discussed in further detail at your follow- up appointment, if applicable. Discharge Plan Admission Admit Date/Time: 03/18/23 07:00 Primary Reason for Your Visit: Vaginal delivery Attending Provider: Leigh Arce Primary Care Provider: Care Physician,No Primary Instructions Additional Instructions / Restrictions: Call for blood pressure greater than 160/110, persistent headache with visual disturbances unresolved with Tylenol or ibuprofen, general malaise. Discharge Orders/Prescriptions Prescriptions: Continued PNV #[id number] 30 mg iron-10 mg iron-1 mg capsule PO Rx Instructions: 1 tab daily Discontinued Levemir FlexPen 100 unit/mL (3 mL) insulin pen 25 unit subcut DAILY Levemir FlexPen 100 unit/mL (3 mL) insulin pen 37 unit subcut QPM Referrals / Follow Up: Care Physician,No Primary [Primary Care Provider] - Disposition Disposition (needs filled in before D/C Order can be placed): Home, Self Care
--- NOTE | 2023-03-20 07:15 | PN.OBGYN_ITS ---
Subjective Subjective Patient feeling well. Lochia minimal. No issues or concerns. No headache or vision changes, chest pain shortness of breath, right upper quadrant pain. Objective Data Objective Data Vital Signs: Vital Signs Temp Pulse Resp BP Pulse Ox O2 Del Method 98.2 F 57 L 16 137/78 H 97 Room Air 03/20/23 02:17 03/20/23 02:17 03/20/23 02:17 03/20/23 02:17 03/20/23 02:17 03/20/23 02:17 Oxygen Delivery Method Room Air Weight: 95.821 kg Body Mass Index (BMI) 35.2 Intake & Output: Intake and Output for Last 24 Hours 03/18/23 03/19/23 03/20/23 23:59 23:59 23:59 Intake Total 970.83 / 970.83 Output Total 700 / 700 150 / 150 Balance 270.83 / 270.83 -150 / -150 Lab / Micro Data Attestation: I reviewed the patient's lab results. 03/18/23 12:05 Labs: Laboratory Results - last 24 hr 03/19/23 06:17: POC Glucose 92 Physical Exam Const alert, oriented x3 and no apparent distress HEENT normocephalic Head and Scalp: atraumatic Neck full ROM Resp normal respiratory effort Cardio regular rate GI normal to inspection, nondistended, normoactive bowel sounds GI Narrative: Uterus 2 cm below umbilicus Back/Spine normal ROM Extremity normal to inspection Extremity Narrative: Minimal pedal edema Neuro no focal motor deficits and no sensory deficits noted Psych mental status grossly normal and affect normal Assessment & Plan (1) Vaginal delivery: PLAN: day 2 status post . Complicated by class I obesity. Gestational diabetes type A2. Blood sugar fasting day 1 within nor mal limits. Patient will need 2-hour glucose tolerance test 6 to 12 weeks . Now with diagnosis of gestational hypertension, intermittent elevated blood pressures. Patient is asymptomatic. Has blood pressure cuff at home and was instructed on use. Reviewed signs and symptoms of preeclampsia and when to call. Patient will have 1 week blood pressure check in the office as well. Discharge home today. (2) Obesity: QUALIFIERS: Obesity classification: adult class 2 (BMI 35 - 39.9) (3) Gestational diabetes: QUALIFIERS: Gestational diabetes mellitus control: insulin- controlled
[2023-03-20 07:33] VITALS: BP 127/86; PULSE 66; RESP 16; TEMP 36.3
--- NOTE | 2023-03-20 07:35 | PCM.DC.SUM ---
Providers Date of Admission: 03/18/23 Primary Care Physician: Sarah Primary Care Phys Reason For Visit: VAGINAL DELIVERY Diagnosis Discharge Diagnosis (1) Vaginal delivery: Status: Acute Code(s): O80 - Encounter for full-term uncomplicated delivery Plan: day 2 status post . Complicated by class I obesity. Gestational diabetes type A2. Blood sugar fasting day 1 within normal limits. Patient will need 2-hour glucose tolerance test 6 to 12 weeks . Now with diagnosis of gestational hypertension, intermittent elevated blood pressures. Patient is asymptomatic. Has blood pressure cuff at home and was instructed on use. Reviewed signs and symptoms of preeclampsia and when to call. Patient will have 1 week blood pressure check in the office as well. Discharge home today. (2) Obesity: Status: Acute Code(s): E66.9 - Obesity, unspecified Qualifiers: Obesity classification: adult class 2 (BMI 35 - 39.9) (3) Gestational diabetes: Status: Acute Code(s): O24.419 - Gestational diabetes mellitus in , unspecified control Qualifiers: Gestational diabetes mellitus control: insulin-controlled Medications at Discharge Home Medications vitamin#30 30 mg iron-10 mg iron-folic acid 1 mg-omg3 capsule cap PO 03/18/23 Hospital Course Summary of Care Provided Hospital Course: Patient admitted for induction of labor at term for gestational diabetes mellitus type A2. Patient had vaginal delivery. Stable for discharge day 2. Weight / BMI Weight Weight: 95.821 kg Body Mass Index (BMI) 35.2 ABG / Lab / Microbiology Data 03/18/23 12:05 Laboratory: Laboratory Results - last 24 hr 03/19/23 06:17: POC Glucose 92 D/C Instructions Discharge Diet: No restrictions May resume sexual activity in: 4-6 weeks Weight Bearing Status: Weight bearing as tolerated Call your doctor if you observe: Fever of 101 or Higher, Change in Color, Inability to urinate, Using more than 1 pad per hour, Shortness of breath, Dizziness, Swelling in the ankles, Chest pain and Calf discomfort Please Follow Up With: Leigh Arce DO When: 1 week BP check in office (Monday 03/26), 6-week visit Meaningful Use Info Meaningful Use Diagnoses (Choose all that apply): None applicable Discharge Plan Admission Admit Date/Time: 03/18/23 07:00 Primary Reason for Your Visit: Vaginal delivery Attending Provider: Leigh Arce Primary Care Provider: Alexey PhysicianSarah Primary Instructions Additional Instructions / Restrictions: Call for blood pressure greater than 160/110, persistent headache with visual disturbances unresolved with Tylenol or ibuprofen, general malaise. Discharge Orders/Prescriptions Prescriptions: Continued PNV #[id number] 30 mg iron-10 mg iron-1 mg capsule PO Rx Instructions: 1 tab daily Discontinued Levemir FlexPen 100 unit/mL (3 mL) insulin pen 25 unit subcut DAILY Levemir FlexPen 100 unit/mL (3 mL) insulin pen 37 unit subcut QPM Referrals / Follow Up: Care Physician,Sarah Primary [Primary Care Provider] - Disposition Disposition (needs filled in before D/C Order can be placed): Home, Self Care
[2023-03-20] MEDS: Acetaminophen 500 MG Tablet 1000 MG PO (11:16)
== END 2023-03-20 12:56 | disposition home or self-care (01) | DRG 560 ==
PROVIDERS: Admitting Provider Student in an Organized Health Care Education/Training Program; Referring Provider Student in an Organized Health Care Education/Training Program; Visit Provider Student in an Organized Health Care Education/Training Program
DX: O24.429 Gestational diabetes mellitus in childbirth, unspecified control (principal); Z37.0 Single live birth; O13.4 Gestational [pregnancy-induced] hypertension without significant proteinuria, complicating childbirth; Z3A.39 39 weeks gestation of pregnancy; O70.0 First degree perineal laceration during delivery; O69.81X0 Labor and delivery complicated by cord around neck, without compression, not applicable or unspecified
CPT/HCPCS: 59025; 59050; 82962; 85025; 86780; 86850; 86900; 86901; 99221; J7120; G0378

== ENCOUNTER 2025-06-24 21:34 | Emergency (ER) | payer MEDICAID, SELFPAY ==
[2025-06-24 21:34] VITALS: BP 172/100; PULSE 71; RESP 16; TEMP 37; O2SAT 97; BMI 33.6
[2025-06-24 22:20] VITALS: BP 172/100; PULSE 79; RESP 16; TEMP 37; O2SAT 100
--- NOTE | 2025-06-24 22:52 | ED.VIS.DENTA ---
HPI History of Present Illness Chief Complaint: Dental Narrative Narrative: Patient is a 34-year-old female presenting to the emergency department for left lower dental pain. Patient states that she does not have insurance and has been needing to get the tooth pulled for a while now. States that this is the third time the tooth pain has acted up. States that tonight around 6:30 PM the dental pain started on the left lower molar which has caused her problems in the past. She denies fever, chills, nausea, vomiting. Denies any facial swelling. Denies any changes to her voice, neck swelling, tongue swelling difficulty swallowing or breathing. [facility] Medical History Vaginal delivery Obesity Home Medications ?Medication ?Instructions ?Recorded ?Last Taken ?Type vitamins 30 30 mg iron-10 cap PO 03/18/23 03/17/23 History mg iron-folic acid 1 mg-om3 capsule amoxicillin 875 mg-potassium 1 tab PO Q12H 5 days #10 tabs 06/24/25 Unknown Rx clavulanate 125 mg tablet Allergy/AdvReac Type Severity Reaction Status Date / Time No Known Allergies Allergy Verified 06/24/25 21:38 Social History Smoking Status: Never smoker ROS ROS ED ROS Narrative see HPI EXAM Physical Exam Narrative Exam Narrative: Vital signs: Reviewed General: Alert and oriented x 3. No acute distress HEENT: Head is normocephalic and atraumatic, sinuses nontender, pupils equal round and reactive. Nares are patent. Uvula midline, no posterior oropharynx erythema or swelling. The left lower back molar has a small crack on the lateral edge. Evidence of dental caries. There is no gingival erythema swelling or tenderness on palpation. There is no drainage when the gingiva is palpated. On palpation of the tooth that is tender. There is no palate bogginess or swelling consistent with Nick's. Tongue is midline, no elevation. No asymmetric swelling to the mandible or cheek. Neck: Supple without lymphadenopathy nontender. No erythema or swelling of the neck. Cardiovascular: Regular rate and rhythm, no murmurs. No rubs or gallops. Normal S1 and S2 Respiratory: Clear to auscultation bilaterally. No wheezes, rales, rhonchi Abdominal: Soft and nontender. Normal bowel sounds. No guarding or rebound. Nonsurgical abdomen Extremities: No tenderness. No bruising. Normal range of motion. Normal sensation. Skin: No rash or redness. The rest of the physical exam is unremarkable Const Vital Signs: 06/24/25 21:34 06/24/25 22:20 Temperature 98.6 F 98.6 F Temperature Source Temporal Pulse Rate 71 79 Respiratory Rate 16 16 Blood Pressure 172/100 H 172/100 H Blood Pressure Mean 124 124 Pulse Ox 97 100 Oxygen Delivery Method Room Air Image ED - URI/Dental Diagram:  1. dental caries MDM MDM MDM Narrative Medical decision making narrative: Patient is a 34-year-old female presenting emergency department for left lower dental pain. Patient was seen and examined. Vitals are stable. Patient resting bed comfortably no acute distress. Patient states that she took Motrin prior to arrival and her pain is actually almost gone at this point. Will prescribe the patient antibiotics given the pain on palpation of the tooth. No evidence of a gingival infection. Provided the patient dental clinic referrals. Recommended Motrin at home for pain control. Offered a dental block however the patient declined stating that she did not pain at this time. Patient discharged from the Emergency Department. I do not feel that the patient's evaluation reveals any acute reason for admission at this time. I instructed them to either follow-up with their primary care physician or promptly return to the Emergency Department for reevaluation should symptoms worsen or new symptoms develop. I explained what symptoms would indicate the need to return to the emergency department. Shared decision making was used. The patient voiced understanding of the treatment plan and is agreeable with it. Clinical impression Dental caries History & Record Review Discussion w/independent historian: Patient Discharge Plan Triage Chief Complaint: Dental ED Provider: Madeleine Smart Dx/Rx/DC Orders Clinical Impression: Dental caries Instructions: ED Dental Pain Prescriptions: New amoxicillin-pot clavulanate 875-125 mg tablet 1 tab PO Q12H 5 Days Qty: 10 0RF No Action PNV [id number] 30 mg iron-10 mg iron-1 mg capsule PO Rx Instructions: 1 tab daily Primary Care Provider: Care Physician,No Primary Referrals: Care Physician,No Primary [Primary Care Provider, Medical] Print Language: Sami Disposition Disposition: Home, Self Care Discharge Date/Time: 06/24/25 22:20
== END 2025-06-24 22:20 | disposition home or self-care (01) ==
PROVIDERS: Emergency Provider Student in an Organized Health Care Education/Training Program; Visit Provider Student in an Organized Health Care Education/Training Program
DX: K02.9 Dental caries, unspecified (principal)
CPT/HCPCS: 99282